=== PATIENT | female | born 1960 | race Caucasian/White ===

== ENCOUNTER 2022-07-27 23:00 | Emergency (ER) | payer BC ==
[2022-07-27] MEDS ORDERED: HYDROcodone/Acetaminophen 5/325 mg Tablet ONE (23:41)
[2022-07-27] MEDS ORDERED: predniSONE 20 MG TAB ONE ×2 (23:41→23:46)
== END 2022-07-28 01:50 | disposition home or self-care (01) ==
LOC: CSHERS 23:00
DX: S46.012A Strain of muscle(s) and tendon(s) of the rotator cuff of left shoulder, initial encounter (principal); I10 Essential (primary) hypertension; F17.200 Nicotine dependence, unspecified, uncomplicated; X58.XXXA Exposure to other specified factors, initial encounter
CPT/HCPCS: J7512

== ENCOUNTER 2023-04-17 08:15 | Day surgery (SDC) | payer OTHER ==
[2023-04-16 12:19] VITALS: BMI 32.5
[2023-04-17] MEDS ORDERED: Lidocaine 1% PF 5 ML VIAL ONE (09:44)
[2023-04-17] MEDS ORDERED: PROPOFOL 40 ML ONE (09:44)
== END 2023-04-17 11:20 | disposition home or self-care (01) ==
LOC: CSHSDC 08:15
PROVIDERS: ATTEND Internal Medicine Gastroenterology
PROC: 0DBP8ZZ Excision of Rectum, Via Natural or Artificial Opening Endoscopic (ICD-10-PCS; principal; 2023-04-17)
PROC: 0DBH8ZZ Excision of Cecum, Via Natural or Artificial Opening Endoscopic (ICD-10-PCS; principal; 2023-04-17)
DX: Z12.11 Encounter for screening for malignant neoplasm of colon (principal); K63.5 Polyp of colon; M19.90 Unspecified osteoarthritis, unspecified site; I10 Essential (primary) hypertension; E78.5 Hyperlipidemia, unspecified; E66.9 Obesity, unspecified; Z87.891 Personal history of nicotine dependence; Z90.49 Acquired absence of other specified parts of digestive tract; Z98.890 Other specified postprocedural states; Z79.899 Other long term (current) drug therapy; Z88.2 Allergy status to sulfonamides
CPT/HCPCS: 88305; J2704

== ENCOUNTER 2023-05-04 13:16 | Outpatient (CLI) | payer OTHER | END 2023-05-04 13:17 | disposition home or self-care (01) | LOC: CSHLAB 13:16 | PROVIDERS: ATTEND Orthopaedic Surgery | DX: Z01.818 Encounter for other preprocedural examination (principal); M17.11 Unilateral primary osteoarthritis, right knee | CPT/HCPCS: 80048; 81003; 85027; 85610; 85730; 86850; 86900; 86901; 87081; 93005; 93010 ==

== ENCOUNTER 2023-06-08 11:42 | Outpatient (CLI) | payer OTHER | END 2023-06-08 11:43 | disposition home or self-care (01) | LOC: CSHLAB 11:42 | PROVIDERS: ATTEND Orthopaedic Surgery | DX: Z01.810 Encounter for preprocedural cardiovascular examination (principal) | CPT/HCPCS: 80048; 81003; 85027; 85610; 85730; 86850; 86900; 86901; 87081; 93005; 93010 ==

== ENCOUNTER 2023-06-10 07:21 | Observation (INO) | payer OTHER ==
[2023-06-08 13:35] LABS: Bilirubin Neg (Negative); Blood, Urine Negative (Negative); Clarity Clear (Clear); Glucose, Urine (Dipstick) 250 mg/dL (Negative); Ketone, Urine Negative (Negative); Leukocyte Negative (Negative); Nitrite Negative (Negative); Protein, Urine (Dipstick) Negative (Neg-Trace); Urobilinogen Normal mg/dL (Less than 2)
[2023-06-08 13:51] LABS: Hematocrit 47.1 % (34.9-44.5); Hemoglobin 15.9 g/dL (12.0-15.5); Mean Corpuscular HGB CONC 33.8 g/dL (32.0-36.0); Mean Corpuscular Hemoglobin 29.9 pg (27.0-33.0); Mean Corpuscular Volume 88.5 fl (81.6-98.3); Mean Platelet Volume 9.5 fl (7.4-10.4); Platelet Count 369 10x3/uL (150-450); RBC Distribution Width 13.8 % (11.5-14.5); Red Blood Cell (RBC) Count 5.32 10x6/uL (3.90-5.03); White Blood Cell (WBC) Count 10.8 10x3/uL (3.5-10.5)
[2023-06-08 14:04] LABS: INR-International Normal Ratio 0.9; PTT 30.8 sec (22.0-33.0); Prothrombin Time 10.1 sec (9.5-12.1)
[2023-06-08 14:08] LABS: Anion Gap 15 mmol/L (10-20); BUN (Urea Nitrogen) 8 mg/dL (9.8-20.1); Calc. Creatinine Clearance 0 mL/min (70-130); Calcium 9.9 mg/dL (7.8-10.44); Carbon Dioxide 30 mmol/L (23-31); Chloride 99 mmol/L (98-107); Estimated GFR 88; Glucose 98 mg/dL (80-115); Potassium 3.3 mmol/L (3.5-5.1); Sodium 141 mmol/L (136-145)
[2023-06-10] MEDS ORDERED: Acetaminophen 325 MG TAB ONE (08:00)
[2023-06-10] MEDS ORDERED: EPINEPHrine 1 MG/ML VIAL ONE (08:35)
[2023-06-10] MEDS ORDERED: Ketorolac Tromethamine 30 MG/ML VIAL ONE ×2 (08:35→08:49)
[2023-06-10] MEDS ORDERED: Bupivacaine PF 0.5% 30 ML VIAL ONE (08:36)
[2023-06-10] MEDS ORDERED: Vancomycin 1 GM VIAL ONE (08:36)
[2023-06-10] MEDS ORDERED: cloNIDine PF 1,000 MCG/10 ML VIAL ONE (08:36)
[2023-06-10] MEDS ORDERED: Ropivacaine 0.2% HCl/PF 20 ML ONE ×2 (08:36→08:55)
[2023-06-10] MEDS ORDERED: Bupivacaine/Epinephrine 0.25% 30 ML VIAL ONE (08:46)
[2023-06-10] MEDS ORDERED: Lidocaine 1% PF 5 ML VIAL ONE (08:49)
[2023-06-10] MEDS ORDERED: Ondansetron PF 4 MG/2 ML Vial ONE (08:49)
[2023-06-10] MEDS ORDERED: Dexamethasone 4 mg/ml Vial ONE (08:49)
[2023-06-10] MEDS ORDERED: fentaNYL 50 mcg/mL 1 mL Vial ONE ×4 (08:49→12:04)
[2023-06-10] MEDS ORDERED: PHENYLEPHRINE-NS 100 MCG/ML 10 ML SYRINGE ONE (08:49)
[2023-06-10] MEDS ORDERED: PROPOFOL 20 ML ONE (08:49)
[2023-06-10] MEDS ORDERED: Midazolam HCl 2 mg/2 ml Vial ONE (08:50)
[2023-06-10] MEDS ORDERED: Tranexamic Acid 1,000 MG/10 ML VIAL ONE (08:50)
[2023-06-10] MEDS ORDERED: CEFAZOLIN 2 GM VIAL ONE (08:50)
[2023-06-10] MEDS ORDERED: Sevoflurane 250 ML INH ANEST BOTTLE ONE (08:51)
[2023-06-10] MEDS ORDERED: diphenhydrAMINE 25 MG CAP PO PRN (09:19)
[2023-06-10] MEDS ORDERED: Promethazine HCl 25 MG/ML VIAL IM PRN (09:19)
[2023-06-10] MEDS ORDERED: Ondansetron PF 4 MG/2 ML Vial IVP PRN (09:19)
[2023-06-10] MEDS ORDERED: Acetaminophen 325 MG TAB PO PRN (09:19)
[2023-06-10] MEDS ORDERED: Morphine 2 MG/ML VIAL SLOW IVP PRN (09:19)
[2023-06-10] MEDS ORDERED: Hydrocodone-Acetamin 15 ML UDCUP PO PRN (12:43)
[2023-06-10 12:56] VITALS: BMI 31.3
[2023-06-10] MEDS: Sodium Chloride 0.9% 1,000 ML IV SCH (13:23)
[2023-06-10] MEDS: Ketorolac Tromethamine 30 MG/ML VIAL IVP SCH (16:06)
[2023-06-10] MEDS: CEFAZOLIN 2 GM in Sodium Chloride 0.9% 100 ML IVPB SCH (16:07)
[2023-06-10] MEDS: Senokot S 8.6-50 MG TAB PO SCH (20:32)
[2023-06-10] MEDS: Ferrous Gluconate 324 MG TAB PO SCH (20:32)
[2023-06-11] MEDS: Ketorolac Tromethamine 30 MG/ML VIAL IVP SCH ×2 (00:52→11:05)
[2023-06-11] MEDS: CEFAZOLIN 2 GM in Sodium Chloride 0.9% 100 ML IVPB SCH (00:52)
[2023-06-11 05:35] LABS: Hematocrit 36.7 % (34.9-44.5); Hemoglobin 12.3 g/dL (12.0-15.5); Mean Corpuscular HGB CONC 33.5 g/dL (32.0-36.0); Mean Corpuscular Hemoglobin 30.3 pg (27.0-33.0); Mean Corpuscular Volume 90.4 fl (81.6-98.3); Mean Platelet Volume 9.9 fl (7.4-10.4); Platelet Count 291 10x3/uL (150-450); RBC Distribution Width 14.4 % (11.5-14.5); Red Blood Cell (RBC) Count 4.06 10x6/uL (3.90-5.03)
[2023-06-11] MEDS ORDERED: Multivitamin W/ Minerals 1 TAB PO SCH (09:00)
[2023-06-11] MEDS: Ferrous Gluconate 324 MG TAB PO SCH (11:05)
[2023-06-11] MEDS: Senokot S 8.6-50 MG TAB PO SCH (11:06)
[2023-06-11 11:57] VITALS: BP 171/81; TEMP 97.9
[2023-06-11] MEDS: Sodium Chloride 0.9% 1,000 ML IV SCH (14:51)
== END 2023-06-11 15:45 | disposition home or self-care (01) ==
LOC: CSHSDC 07:21 → EDSTATUS 12:30 → CSHTELE 12:56
PROVIDERS: ADMIT Orthopaedic Surgery; ATTEND Orthopaedic Surgery
PROC: 0SRC0JZ Replacement of Right Knee Joint with Synthetic Substitute, Open Approach (ICD-10-PCS; principal; 2023-06-11)
DX: M17.11 Unilateral primary osteoarthritis, right knee (principal); I10 Essential (primary) hypertension; E78.5 Hyperlipidemia, unspecified; J30.2 Other seasonal allergic rhinitis; Z88.2 Allergy status to sulfonamides; Z91.012 Allergy to eggs; Z79.899 Other long term (current) drug therapy
CPT/HCPCS: 36415; 80048; 81003; 85027; 85610; 85730; 86850; 86900; 86901; 87081; C1776; J0171; J0735; J1100; J1650; J1885; J2250; J2405; J2704; J2795; J3010; J3370; J3490; J7050; S0020